=== PATIENT | female | born 1995 | race Two or more races ===

== ENCOUNTER 2017-01-06 09:46 | Emergency (ER) | payer OTHER ==
[~2017-01-06] VITALS: Ht 157.5 cm; Wt 65.8 kg
[2017-01-06] MEDS ORDERED: [UNRECOGNIZED DRUG - REMARK] (10:08)
[2017-01-06] MEDS ORDERED: Tylenol #3 tab (300mg/30mg) PO ONE (10:15)
[2017-01-06 10:21] VITALS: BP 107/70
[2017-01-06] MEDS ORDERED: TYLENOL EXTRA500 MG ORAL (10:45)
[2017-01-06 10:54] VITALS: BP 107/70
--- NOTE | 2017-01-06 11:33 | Diagnostic Imaging Report ---
Indication: Pain 3 views of the left knee were obtained. Findings: No acute fracture, malalignment, or joint effusion are identified. Joint space is relatively well-maintained. Bone mineralization is within normal limits for age. Impression: Negative exam
--- NOTE | 2017-01-07 07:20 | Emergency Room Report ---
History of Present Illness General Chief Complaint: Lower Extremity Injury Source: Patient Present Illness HPI 21-year-old female presents ED complaining of left knee pain. Yesterday she had a trip and fall at work, landing on her left knee. Patient denies any other injuries. Patient's are complaining of left knee pain. 12/18, sharp, nonradiating. Is able to bear weight. No other aggravating relieving factors. Denies any other associated symptoms Allergies: Coded Allergies: No Known Allergies (Unverified , 01/06/17) Patient History Past Medical History: asthma Past Surgical History: none Pertinent Family History: none Social History: Denies: smoking, alcohol use, drug use Last Menstrual Period: 12/18/16 Now: No Immunizations: UTD Reviewed Nursing Documentation: PMH: Agreed, PSxH: Agreed Nursing Documentation-PMH Hx Asthma: Yes Review of Systems All Other Systems: negative except mentioned in HPI Physical Exam Vital Signs Date Time Temp Pulse Resp B/P (MAP) Pulse Ox O2 Delivery O2 Flow Rate FiO2 01/06/17 10:00 99.1 87 16 107/70 98 Room Air Sp02 EP Interpretation: reviewed, normal General Appearance: no apparent distress, alert, GCS 15, non-toxic Head: normocephalic Eyes: bilateral eye normal inspection, bilateral eye PERRL ENT: normal ENT inspection Neck: normal inspection Respiratory: normal inspection Cardiovascular #1: normal inspection Gastrointestinal: normal inspection Rectal: deferred Genitourinary: no CVA tenderness Musculoskeletal: tender - L knee Neurologic: alert, oriented x3, responsive, motor strength/tone normal, sensory intact, speech normal Psychiatric: normal inspection Skin: normal inspection Lymphatic: normal inspection Procedures Splinting Splinting : Consent: Verbal Pre-Made Type: KATHYA wrap - L knee Pre-Proc Neuro Vasc Exam: normal Post-Proc Neuro Vasc Exam: normal Patient Tolerated: Well Complications: None Medical Decision Making Diagnostic Impression: Primary Impression: Knee contusion Qualified Codes: S80.02XA - Contusion of left knee, initial encounter ER Course Hospital Course 21-year-old F presents to ED complaining of L knee pain s/p trip and fall Differential diagnoses include: Fracture, dislocation, sprain, contusion Clinical course Patient placed on stretcher. After initial history and physical, I ordered pain medications and Xrays of L knee Xrays prelim read shows no acute fracture/dislocation. placed in kathya wrap, given crutches Diagnosis - knee contusion Stable and discharged to home with prescription for Tylenol. apply ice, keep elevated. weight bear as tolerated. Followup with PMD. Return to ED if symptoms recur or worsen Other X-Ray Diagnostic Results Other X-Ray Diagnostic Results : X-Ray ordered: L knee # of Views/Limited Vs Complete: 3 View Indication: Pain EP Interpretation: Yes Interpretation: no dislocation, no soft tissue swelling, no fractures Impression: No acute disease Interpreting ER Provider: Electronically signed by Helio Portillo MD Last Vital Signs Date Time Temp Pulse Resp B/P (MAP) Pulse Ox O2 Delivery O2 Flow Rate FiO2 01/06/17 10:54 99.1 16 107/70 98 Room Air 01/06/17 10:00 87 Status: improved Disposition: HOME, SELF-CARE Condition: Stable Scripts Acetaminophen* (TYLENOL EXTRA STRENGTH*) 500 Mg Tablet 500 MG ORAL Q8H Y for Prn Headache/Temp > 101, #30 TAB 0 Refills Prov: HELIO PORTILLO M.D. 01/06/17 Departure Forms: Return to Work Return to Work Date: Jan 08, 2017 Work Restrictions: No Heavy Lifting Patient Instructions: Knee Pain, [id number] HELIO PORTILLO M.D. Jan 07, 2017 07:20
== END 2017-01-06 10:56 | disposition home or self-care (01) ==
LOC: EMR 10:23
DX: S80.02XA Contusion of left knee, initial encounter (principal); J45.909 Unspecified asthma, uncomplicated; W01.0XXA Fall on same level from slipping, tripping and stumbling without subsequent striking against object, initial encounter; Y92.512 Supermarket, store or market as the place of occurrence of the external cause; Y99.0 Civilian activity done for income or pay
CPT/HCPCS: 29530; 99283